=== PATIENT | male | born 1985 | race Two or more races ===

== ENCOUNTER 2021-11-22 13:29 | Emergency (ER) | payer SELFPAY ==
[~2021-11-22] VITALS: Ht 167.6 cm; Wt 75.0 kg
[2021-11-22] MEDS ORDERED: LIDOCAINE 2% Multi-Dose 20 ML VIAL. IJ ONE (14:15)
[2021-11-22] MEDS ORDERED: ceFAZolin SODIUM IV Push 1 GM VIAL. IVP ONE (14:15)
[2021-11-22] MEDS ORDERED: DIPHTH,PERTUSS(ACELL),TET TOX 0.5 ML DISP.SYRIN. VAX IM ONE (14:15)
--- NOTE | 2021-11-22 14:44 | RAD ---
XR HAND_LEFT 3 VIEWS DATE: 11/22/2021 2:25 PM INDICATION: [place] saw injury attention digits #3 and #4 COMPARISON: None. FINDINGS: Bones: Acute fracture along the mid aspect of the fourth distal phalanx with displacement of the dist al tuft. Joints: The joint spaces are normal. Miscellaneous: No radiopaque foreign bodies. IMPRESSION: 1. Acute displaced fourth distal phalanx fracture. 2. No radiopaque foreign body Electronically signed by: Denzel Dupree MD (11/22/2021 2:42 PM) [id number]
[2021-11-22] MEDS ORDERED: LIDOCAINE 1% PF 5 ML VIAL. ONE (15:25)
[2021-11-22] MEDS ORDERED: ROCURONIUM 50 MG/5 ML VIAL. ONE (15:25)
[2021-11-22] MEDS ORDERED: DEXAMETHASONE SOD PHOS 4 MG/ML VIAL ONE (15:25)
[2021-11-22] MEDS ORDERED: ONDANSETRON PF 4 MG/2 ML VIAL. ONE (15:25)
[2021-11-22] MEDS ORDERED: KETOROLAC 30 MG/ML VIAL. ONE (15:26)
[2021-11-22] MEDS ORDERED: fentaNYL PF VIAL 100 MCG/2 ML VIAL ONE (15:26)
[2021-11-22] MEDS ORDERED: MIDAZOLAM HCL/PF 2 MG/2 ML VIAL. ONE (15:26)
[2021-11-22] MEDS ORDERED: fentaNYL PF VIAL 100 MCG/2 ML VIAL IVP PRN ×2 (15:30)
[2021-11-22] MEDS ORDERED: HYDROmorphone 2 MG/ML INJ. IVP PRN (15:30)
[2021-11-22] MEDS ORDERED: PROCHLORPERAZINE 10 MG/2 ML VIAL. IVP PRN (15:30)
[2021-11-22] MEDS ORDERED: IV RINGERS,LACTATED 1000ML 1,000 ML IV SCH (15:30)
[2021-11-22] MEDS ORDERED: MORPHINE SULFATE 2 MG/ML INJ. IVP PRN (15:30)
--- NOTE | 2021-11-22 15:30 | PHYS DOC ---
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 Patient is Welsh-speaking only.. Patient is a 36 year old male who presents to the emergency department with chief complaint of cutting the fingers on his left hand while using a circular saw at approximately 1215 today. Patient reports a 10 out of 10 pain. Patient denies taking any medications prior to arriving to the emergency department for evaluation. Denies allergies to medications, denies a health history, does not take medications at home, reports his last tetanus immunization was greater than 5 years ago, does not have a primary care physician. Patient reports the last time he ate or drink was a 12 ounce Coca-Cola with 1 slice of bread at 10 AM today. Patient denies any other physical injury denies other physical complaints. Review of Systems: Review of Systems: 14 body systems of review of systems have been reviewed. See HPI for pertinent positives and negative responses, otherwise all other systems are negative, n onpertinent or noncontributory. Constitutional: Negative except as outlined in HPI above. Skin: Negative except as outlined in HPI above. Eyes: Negative except as outlined in HPI above. HENT: Negative except as outlined in HPI above. Respiratory: Negative except as outlined in HPI above. Cardiovascular: Negative except as outlined in HPI above. GI: Negative except as outlined in HPI above. : Negative except as outlined in HPI above. Musculoskeletal: Negative except as outlined in HPI above. Integument: Negative except as outlined in HPI above. Neurologic: Negative except as outlined in HPI above. Endocrine: Negative except as outlined in HPI above. Lymphatic: Negative except as outlined in HPI above. Psychiatric: Negative except as outlined in HPI above. Heart Score: C/O Chest Pain: No Risk Factors: Risk Factors: DM, Current or recent (<one month) smoker, HTN, HLP, family history of CAD, obesity. Risk Scores: Score 0 - 3: 2.5% MACE over next 6 weeks - Discharge Home Score 4 - 6: 20.3% MACE over next 6 weeks - Admit for Clinical Observation Score 7 - 10: 72.7% MACE over next 6 weeks - Early Invasive Strategies Current Medications: Current Medications Medications (Trade) Dose Ordered Sig/Pedro Start Time Stop Time Status Last Admin Dose Admin Cefazolin Sodium (Ancef) 1 gm 1X ONCE 11/22/21 14:15 11/22/21 14:21 DC 11/22/21 14:15 1 GM Diphtheria/ Tetanus/Acell Pertussis (Boostrix) 0.5 ml ONCE ONCE 11/22/21 14:15 11/22/21 14:21 DC Lidocaine HCl (Lidocaine 2% 20ml Vial) 20 ml 1X ONCE 11/22/21 14:15 11/22/21 14:21 DC 11/22/21 14:15 20 ML Allergies: Allergies: Allergies Coded Allergies Type Severity Reaction Last Updated Verified No Known Drug Allergies 11/22/21 No Physical Exam: PE: Constitutional: Well developed, well nourished, no acute distress, non-toxic appearance. 36-year-old male appears uncomfortable, holding bandage over left hand with right upper extremity. HENT: Normocephalic, atraumatic. Eyes: Conjunctiva normal, no discharge. Neck: Normal range of motion, no stridor. Cardiovascular: No cyanosis appreciated, distal cap refill less than 2 seconds. Lungs & Thorax: Patient is in no respiratory distress, no audible adventitious lung sounds appreciated. Abdomen: Nontender, no abnormalities noted. Skin: Warm, dry, no erythema, no rash. See extremity note for focused skin examination. Back: No tenderness, no deformities. Extremities: No tenderness, no cyanosis, no clubbing, ROM intact, no edema. Except for left upper extremity, distal fingertip avulsion of middle finger distal to nail, bleeding controlled, limited passive range of motion, distal phalanx laceration with bone exposed, nailbed involvement to the ring finger, no extension or flexion of ring finger distal phalanx. Bleeding is controlled. No loss of sensation distally to the left hand fingers. Distal cap refill is less than 2 seconds bilateral upper extremities, 2+ radial pulses bilateral upper e xtremities. Neurologic: Alert and oriented X 3, normal motor function, normal sensory function, no focal deficits noted. Psychologic: Affect normal, judgement normal, mood normal. Current Patient Data: Labs: Laboratory Tests Test 11/22/21 15:13 Influenza Type A Antigen Negative Influenza Type B Antigen Negative SARS-CoV-2 Antigen (Rapid) Negative Current Medications Medications (Trade) Dose Ordered Sig/Pedro Route PRN Reason Start Time Stop Time Status Last Admin Dose Admin Cefazolin Sodium (Ancef) 1 gm 1X ONCE IVP 11/22/21 14:15 11/22/21 14:21 DC 11/22/21 14:15 Diphtheria/ Tetanus/Acell Pertussis (Boostrix) 0.5 ml ONCE ONCE VAX IM 11/22/21 14:15 11/22/21 14:21 DC 11/22/21 15:15 Lidocaine HCl (Lidocaine 2% 20ml Vial) 20 ml 1X ONCE IJ 11/22/21 14:15 11/22/21 14:21 DC 11/22/21 14:15 Dexamethasone Sodium Phosphate (Decadron) 4 mg STK-MED ONCE .ROUTE 11/22/21 15:25 11/22/21 15:25 DC Lidocaine HCl (Xylocaine-Mpf 1% 5ml Vial) 5 ml STK-MED ONCE .ROUTE 11/22/21 15:25 11/22/21 15:26 DC Ondansetron HCl (Zofran) 4 mg STK-MED ONCE .ROUTE 11/22/21 15:25 11/22/21 15:26 DC Rocuronium [place] (Zemuron) 50 mg STK-MED ONCE .ROUTE 11/22/21 15:25 11/22/21 15:26 DC Fentanyl Citrate (Fentanyl 2ml Vial) 100 mcg STK-MED ONCE .ROUTE 11/22/21 15:26 11/22/21 15:26 DC Midazolam HCl (Versed) 2 mg STK-MED ONCE .ROUTE 11/22/21 15:26 11/22/21 15:26 DC Ketorolac Tromethamine (Toradol 30mg Vial) 30 mg STK-MED ONCE .ROUTE 11/22/21 15:26 11/22/21 15:27 DC Fentanyl Citrate (Fentanyl 2ml Vial) 25 mcg PRN Q5MIN PRN IVP MILD PAIN 1-3 11/22/21 15:30 11/22/21 22:00 Fentanyl Citrate (Fentanyl 2ml Vial) 50 mcg PRN Q5MIN PRN IVP MODERATE PAIN 4-6 11/22/21 15:30 11/22/21 22:00 Morphine Sulfate (Morphine Sulfate) 1 mg PRN Q10MIN PRN IVP SEVERE PAIN 7-10 11/22/21 15:30 11/22/21 22:00 Ringer's Solution 1,000 ml @ 30 mls/hr Q24H IV 11/22/21 15:30 11/23/21 03:29 11/22/21 15:30 Hydromorphone HCl (Dilaudid) 0.5 mg PRN Q10MIN PRN IVP SEVERE PAIN 7-10, 2nd CHOICE 11/22/21 15:30 11/22/21 22:00 Prochlorperazine Edisylate (Compazine) 5 mg PACU PRN PRN IVP NAUSEA, MRX1 11/22/21 15:30 11/22/21 22:00 Bupivacaine HCl (Sensorcaine Mpf 0.5%) 30 ml STK-MED ONCE .ROUTE 11/22/21 15:59 11/22/21 15:59 DC 11/22/21 16:51 Vital Signs: Vital Signs Date Time Temp Pulse Resp B/P (MAP) Pulse Ox O2 Delivery O2 Flow Rate FiO2 11/22/21 14:06 67 18 122/56 (78) 98 EKG: EKG: [] Radiology/Procedures: Radiology/Procedures: REASON: [place] saw injury attention digits #3 and #4 PROCEDURE: HAND LEFT 3V XR HAND_LEFT 3 VIEWS DATE: 11/22/2021 2:25 PM INDICATION: [place] saw injury attention digits #3 and #4 COMPARISON: None. FINDINGS: Bones: Acute fracture along the mid aspect of the fourth distal phalanx with displacement of the distal tuft. Joints: The joint spaces are normal. Miscellaneous: No radiopaque foreign bodies. IMPRESSION: 1. Acute displaced fourth distal phalanx fracture. 2. No radiopaque foreign body Electronically signed by: Denzel Dupree MD (11/22/2021 2:42 PM) [id number] Course & Med Decision Making: Course & Med Decision Making Pertinent Labs and Imaging studies reviewed. (See chart for details) 36-year-old male, vital signs reviewed, presents emergency department concerning circular saw injury to the left ring and middle finger prior to arrival to the ER today. Physical examination is consistent with patient's explanation of events, will bring patient's Tdap up-to-date, digital block left hand digits 3 and 4, IV saline lock, x-ray of left hand, 1 g IV Ancef. X-ray radiologist interpretation shows acute displaced fourth distal phalanx fracture without radiopaque foreign body present, discussed patient case and ED work-up with ED attending physician Dr. Apple who reviewed case with orthopedic surgeon Dr. Haro who recommended patient be taken to the OR for I&D, surgical repair of left hand ring finger. Discussed with patient recommendation of Dr. Haro, patient is amenable to ED planning. Covid testing obtained and sent to lab, at 1515 anesthesia at bedside to interview patient. Patient awaiting OR at this time. Patient states left hand fingers 3 and 4 are pain-free since digital block given. Dragon Disclaimer: Dragon Disclaimer: This electronic medical record was generated, in whole or in part, using a voice recognition dictation system. Departure Departure Impression: Primary Impression: Finger fracture Qualified Codes: S62.635B - Displaced fracture of distal phalanx of left ring finger, initial encounter for open fracture Additional Impressions: Fingertip avulsion Qualified Codes: S61.209A - Unspecified open wound of unspecified finger without damage to nail, initial encounter Need for DTaP vaccination Disposition: 30 STILL A PATIENT (Patient sent to the OR for I&D procedure prior to discharge from hospital) Referrals: NO PCP (PCP) Additional Instructions: You are seen today in the emergency department after a circular saw injury to your left hand ring and middle finger. Your tetanus immunization was brought up-to-date today in the emergency department with a medication called Tdap, the x-rays are concerning for a fracture of your ring finger distal tip, therefore you are brought to the operating room by Dr. Haro for surgical cleaning and repair. Please follow all discharge recommendations given by Dr. Haro. MARK GLOVER APRN Nov 22, 2021 15:30
[2021-11-22 15:44] LABS: INFLUENZA A PATIENT NEGATIVE (NEGATIVE); INFLUENZA B PATIENT NEGATIVE (NEGATIVE)
[2021-11-22] MEDS ORDERED: BUPIVACAINE MPF 0.5% 30 ML VIAL. ONE (15:59)
--- NOTE | 2021-11-22 17:30 | PDOC4 ---
OPERATIVE NOTE Date: Date: Nov 22, 2021 Pre-Op Diagnosis: Traumatic near amputation left ring finger Post-Op Diagnosis: Same Procedure Performed: Irrigation and debridement left ring finger wound with completion of amputation Surgeon: Estrellita Anesthesia Type: General Blood Loss: 5 cc Specimans Obtained: Left ring finger distal phalanx Findings: Amputation at mid substance middle phalanx Complications: None ZEHRA SURESH Jr., DO Nov 22, 2021 17:30
[2021-11-22] MEDS ORDERED: HYDR-2761 PO (17:33)
[2021-11-22] MEDS ORDERED: AMOX1TAB58 PO (17:35)
--- NOTE | 2021-11-22 17:36 | DISCH ---
DISCHARGE INSTRUCTIONS Condition on Discharge Condition on Discharge: Stable Activity After Discharge Activity Instructions for Disc: Activity as tolerated, Avoid exertion Driving Instructions after Dis: Do not drive today Wound Incision Care Wound/Incision Care: Ice to area for comfort, Keep wound elevated, Do not change dressing Follow-Up Follow up with: Estrellita in 7 to 10 days ZEHRA SURESH Jr. DO Nov 22, 2021 17:36
[2021-11-22 18:00] VITALS: BP 118/75
[2021-11-22] MEDS ORDERED: HYDROcodone/APAP 5/325MG 1 TAB TABLET PO ONE (18:00)
--- NOTE | 2021-11-22 18:53 | OP ---
DATE OF SURGERY: 11/22/2021 PREOPERATIVE DIAGNOSIS: Near amputation with a saw injury, left ring finger. POSTOPERATIVE DIAGNOSIS: Near amputation with a saw injury, left ring finger. PROCEDURE: Completion of revision amputation, left ring finger. SURGEON: Sukhwinder Haro Jr, DO OFFICE TECHNICIAN: Hector Choi. DESCRIPTION OF PROCEDURE: Left upper extremity was prepped and draped in a sterile fashion after general anesthetic was done. Exploration of the wound was undertaken and after this was thoroughly irrigated and debrided, there was noted to be an absence of the complete extensor mechanism from the area of the middle portion of the middle phalanx, distal. Also the entire radial bundle was devoid of any tissues to be repaired as well and the comminuted fragments of bone had significant missing portions of that as well as comminution of significance at this point. The nerve was also damaged on the ulnar side as well. The flexor tendon was intact; however, again no extensor opposition noted at all with a significant deficit. Therefore, after evaluation of this, the distal phalanx and a small portion of the distal aspect of the middle phalanx were removed using a rongeur. This was then thoroughly irrigated, again debrided further and the nerve was then cut at that level allowed to retract to prevent neuroma and then the wound was revised in multiple planes in order to be able to close this appropriately. After the amputation and a repair of this was performed, this was then thoroughly irrigated around the outside. Sterile dressing was applied. The patient was then taken from the operative bed to the postoperative bed, taken to the PACU in stable condition. PETER DR: Susy TID: [id number]
--- NOTE | 2021-11-22 20:29 | CONS ---
DATE OF CONSULTATION: 11/22/2021 REASON FOR CONSULTATION FOR MYSELF: Injury, left ring finger. BRIEF HISTORY: The patient is a 36-year-old right hand dominant male who was at work and sustained a significant injury using the saw today at work. He had no prior history of injury. Unfortunately, he had significant damage at the time of this incident therefore was brought to the Emergency Department here at [facility]. He was immediately brought from the Emergency Department to the surgical department after discussing this with anesthesia. He has had no prior history of any other injuries. Thankfully, no other digits are involved at this point. Past medical history, surgical history, medications, allergies, review of systems all noted. PHYSICAL EXAMINATION: Today reveals there to be significant damage to the area of the DIP joint and distal phalanx. This involves a significant amount of soft tissue and bone. PLAN: I have, therefore, talked to him through an gullet slitter and after that discussion, we have talked about the risks, complications as well as benefits and expectations of surgery for possible repair, possible ORIF, possible completion of amputation at this point. He is well aware of all the risks and benefits and wishes to proceed at this point. CLEO DR: Susy TID: [id number]
== END 2021-11-22 18:20 | disposition home or self-care (01) ==
LOC: ER 13:29
DX: S62.635B Displaced fracture of distal phalanx of left ring finger, initial encounter for open fracture (principal); Z20.822 Contact with and (suspected) exposure to COVID-19; Y28.8XXA Contact with other sharp object, undetermined intent, initial encounter; Y93.89 Activity, other specified; Y92.89 Other specified places as the place of occurrence of the external cause; Y99.8 Other external cause status
CPT/HCPCS: 73130; 87428; 90471; 90715; 96361; 96374; 99285; A4930; A6223; A6402; A6448; J0690; J1100; J1885; J2250; J2405; J3490; J7120; A6454; J3010